=== PATIENT | male | born 1965 | race Caucasian/White ===

== ENCOUNTER 2018-03-18 09:30 | Inpatient (IN) | payer OTHER ==
[~2018-03-18] VITALS: Ht 175.3 cm; Wt 104.3 kg
[2018-03-18] MEDS ORDERED: LIRICA (10:32)
[2018-03-18] MEDS ORDERED: [UNRECOGNIZED DRUG - OTHER] (10:33)
[2018-03-18] MEDS ORDERED: VERAPAMIL (10:34)
== END 2018-03-22 11:31 | disposition home or self-care (01) | DRG 455 ==
LOC: PED 03-21 05:20 → O/R 03-21 05:20 → SURH 03-21 09:30 → PED 03-21 11:08
PROVIDERS: Orthopaedic Surgery
PROC: 0RG20K1 Fusion of 2 or more Cervical Vertebral Joints with Nonautologous Tissue Substitute, Posterior Approach, Posterior Column, Open Approach (ICD-10-PCS; 2018-03-21)
PROC: 0RT30ZZ Resection of Cervical Vertebral Disc, Open Approach (ICD-10-PCS; 2018-03-21)
PROC: 0RG20A0 Fusion of 2 or more Cervical Vertebral Joints with Interbody Fusion Device, Anterior Approach, Anterior Column, Open Approach (ICD-10-PCS; principal; 2018-03-21 09:45)
DX: M50.01 Cervical disc disorder with myelopathy, high cervical region (principal); M48.02 Spinal stenosis, cervical region; R13.19 Other dysphagia